=== PATIENT | male | born 1960 | race Caucasian/White ===

== ENCOUNTER 2018-09-16 09:57 | Emergency (ER) | payer MEDICAID ==
[~2018-09-16] VITALS: Wt 62.9 kg
[2018-09-16 10:04] VITALS: BP 132/71; PULSE 66; RESP 16
[2018-09-16] MEDS ORDERED: VALA10004 PO (10:43)
[2018-09-16] MEDS ORDERED: IBUP-1542 PO (10:45)
--- NOTE | 2018-09-16 10:57 | ERD ---
ER Documentation Chief Complaint Chief Complaint REDNESS/SWELLING ON BACK/RIGHT CHEST X1 WEEK HPI Patient is a 58-year-old male presents the ER for concerns of a rash on his back as well as right upper chest. Patient states the rash started 1 week ago. Patient states he continues to see new lesions presenting. Patient states that prior to the onset of the rash she did notice some numbness tingling to the affected areas. Patient reports mild pain. Patient denies any fevers or chills. Patient denies any other rashes throughout his body. Rash localized on his right upper chest and right back region. No recent travel. No sick contacts. Patient denies new creams, lotions, medications, foods. Patient denies any lip swelling, tonsillectomy difficulty breathing, chest pain, shortness breath or LOC. ROS All systems reviewed and are negative except as per history of present illness. Medications Home Meds Active Scripts Ibuprofen* (Motrin*) 600 Mg Tab, 600 MG PO Q6, #30 TAB Prov:BONNIE KNOX PA-C 09/16/18 Valacyclovir HCl (Valtrex) 1,000 Mg Tablet, 1000 MG PO TID for 7 Days, TAB Prov:BONNIE KNOX PA-C 09/16/18 Allergies Allergies: Coded Allergies: No Known Allergy (Unverified , 09/16/18) PMhx/Soc Medical and Surgical Hx: pt denies Medical Hx, pt denies Surgical Hx Hx Alcohol Use: Yes (social) Hx Substance Use: No Hx Tobacco Use: No Smoking Status: Never smoker FmHx Family History: No diabetes Physical Exam Vitals Vital Signs Date Temp Pulse Resp B/P (MAP) Pulse Ox O2 O2 Flow FiO2 Time Delivery Rate 09/16/18 97.5 66 16 132/71 99 10:04 (91) Physical Exam GENERAL: Well-developed, well-nourished male speaking in full sentences. Appears in no acute distress. HEAD: Normocephalic, atraumatic. EYES: Pupils are equally reactive bilaterally. EOMs grossly intact. No conjunctival erythema. ENT: Moist mucous membranes. No uvula deviation. No kissing tonsils. NECK: Supple. No meningismus. Normal range of motion of the neck. LUNG: Clear to auscultation bilaterally. No rhonchi, wheezing, rales or coarse breath sounds. HEART: Regular rate and rhythm. No murmurs, rubs or gallops. EXTREMITIES: Equal pulses bilaterally. No peripheral clubbing, cyanosis or edema. No unilateral leg swelling. NEUROLOGIC: Alert and oriented. Moving all four extremities without any difficulty. Normal speech. Steady gait. SKIN: Erythematous vesicular lesions noted from the patient's right thoracic paraspinal muscle region through his right chest wall, below the breast. Lesions appear to be in a dermatomal fashion. Negative Nikolsky sign. No streaking. No fluctuance or induration. Procedures/MDM MEDICAL DECISION MAKING: This is a 58-year-old male who presents ER for concerns of rash on his back as well as his right upper chest times 1 week. Patient continues to report new lesions. Physical exam findings are consistent with vital signs were reviewed. Patient was afebrile. Shingles as the rash appears to be given the patient continues to report new lesions appearing each day, will treat patient with course of valacyclovir at this time. Contact precautions were discussed. Patient was advised to avoid present in dermatomal fashion. Contact with females as well as young children her unvaccinated. Low suspicion for necrotizing fasciitis, sepsis, gangrene, Aaron-Jonas syndrome, toxic epidural necrolysis, abscess, cellulitis, anaphylaxis, allergic reaction, allergic contact dermatitis, irritant contact dermatitis, fungal infection, insect bite, impetigo, dermatitis. Patient was nontoxic, non-opening prior to discharge. PRESCRIPTIONS: Ibuprofen, valacyclovir DISCHARGE: At this time, patient is stable for discharge and outpatient management. I have advised the patient to avoid any new products, creams or possible allergens. I have advised the patient to avoid scratching the lesions. I have instructed the patient to follow-up with his/her primary care physician in 1-2 days. If symptoms persist, patient may need to see a entry level project coordinator for further examinations and testing. I have instructed the patient to promptly return to the ER at any time for any new or worsening symptoms including increased pain, fever, redness, swelling, warmth, difficulty breathing or vomiting. The patient and/or family expressed understanding of and agreement with this plan. All questions were answered. Home care instructions were provided. Disclaimer: Inadvertent spelling and grammatical errors are likely due to EHR/dictation software use and do not reflect on the overall quality of patient care. Also, please note that the electronic time recorded on this note does not necessarily reflect the actual time of the patient encounter. Departure Diagnosis: Primary Impression: Shingles Herpes zoster complications: without complications Qualified Codes: B02.9 - Zoster without complications Additional Impression: Rash Condition: Stable Patient Instructions: Self-Care for Skin Rashes, Shingles (Herpes Zoster) [facility] Usted se negro hecho un examen mdico de control que le indica que no est en sindy condicin que requiera tratamiento urgente en el Departamento de Emergencia. Un estudio ms profundo y el tratamiento de shabazz condicin pueden esperar sin ningn riesgo hasta que usted sea atendida/o en el consultorio de shabazz mdico o sindy clnica. Es responsabilidad suya arreglar sindy zahraa para el seguimiento del fidencio. MANEJO DE CONDICIONES NO URGENTES EN EL FUTURO 1) Si usted tiene un mdico de atencin primaria: Usted debera llamar a shabazz mdico de atencin primaria antes de venir al departamento de emergencia. Despus de las horas de consultorio, shabazz doctor o shabazz asociado/a est disponible por telfono. El mdico o enfermero de iesha en el servicio telefnico puede asesorarle por cortez medio para atender el problema, o fidencio contrario se puede programar sindy zahraa. 2) Si usted no tiene un mdico de atencin primaria: Llame al mdico o clnica de referencia que aparece abajo jacqueline las horas de consultorio para hacer sindy zahraa para que le vean. CLINICAS: [facility] [phone] [facility] [phone] [facility] [phone] [facility] [phone] [facility] [phone] [address] [facility] [phone] [facility] () Donato se negro hecho un examen mdico de control que le indica que no est en sindy condicin que requiera tratamiento urgente en el Departamento de Emergencia. Un estudio ms profundo y el tratamiento de shabazz condicin pueden esperar sin ningn riesgo hasta que usted sea atendida/o en el consultorio de shabazz mdico o sindy clnica. Es responsabilidad suya arreglar sindy zahraa para el seguimiento del fidencio. MANEJO DE CONDICIONES NO URGENTES EN EL FUTURO 1) Si usted tiene un mdico de atencin primaria: Usted debera llamar a shabazz mdico de atencin primaria antes de venir al departamento de emergencia. Despus de las horas de consultorio, shabazz doctor o shabazz asociado/a est disponible por telfono. El mdico o enfermero de iesha en el servicio telefnico puede asesorarle por cortez medio para atender el problema, o fidencio contrario se puede programar sindy zahraa. 2) Si usted no tiene un mdico de atencin primaria: Llame al mdico o condado institucions de referencia que aparece abajo jacqueline las horas de consultorio para hacer sindy zahraa para que le vean. SI USTED NO PUEDE PAGAR PARA ROXY UN MEDICO puede ir a: [facility] [address] [place] [address] [facility] [address] [place] [address] [facility] [address] [place] [address] [facility] [address] [place] [address] Additional Instructions: Llame al doctor MAANA y dahlia sindy ZAHRAA PARA DENTRO DE 1-2 VILLALTA.Dgale a la secretaria que nosotros le instruimos hacer esta zahraa.Avise o llame si shabazz condicin se empeora antes de la zahraa. Regresa aqui si peor o no mejor. BONNIE KNOX PA-C Sep 16, 2018 10:57
== END 2018-09-16 10:58 | disposition home or self-care (01) ==
LOC: FTE 09:57
DX: B02.9 Zoster without complications (principal)
CPT/HCPCS: 99283